=== PATIENT | male | born 1980 | race Caucasian/White ===

== ENCOUNTER 2022-05-24 08:31 | Emergency (ER) | payer OTHER ==
[~2022-05-24] VITALS: Ht 175.3 cm; Wt 110.9 kg
[2022-05-24] MEDS ORDERED: KETOROLAC TROMETHAMINE 30 MG/ML VIAL ONE (09:08)
[2022-05-24] MEDS ORDERED: SODIUM CHLORIDE 0.9% 1000ML 1,000 ML ONE (09:08)
[2022-05-24] MEDS ORDERED: ONDANSETRON HCL INJ 2MG/ML 2ML 2 MG/ML VIAL ONE (09:08)
[2022-05-24] MEDS ORDERED: Morphine 4mg INJECTION 4 MG/ML INJ IV ONE (09:15)
[2022-05-24] MEDS ORDERED: PRILOSEC OTC20 MG (09:39)
[2022-05-24] MEDS ORDERED: ONDANSETRON HCL INJ 2MG/ML 2ML 2 MG/ML VIAL IV STA (09:50)
[2022-05-24] MEDS ORDERED: KETOROLAC TROMETHAMINE 30 MG/ML VIAL IV STA (09:50)
[2022-05-24] MEDS ORDERED: SODIUM CHLORIDE 0.9% 1000ML 1,000 ML IV ONE (10:00)
[2022-05-24] MEDS ORDERED: Morphine 4mg INJECTION 4 MG/ML INJ ONE (10:35)
[2022-05-24] MEDS ORDERED: FLOMAX0.4 MG PO (10:44)
[2022-05-24] MEDS ORDERED: KETOROLAC TROME10 MG PO (10:44)
[2022-05-24] MEDS ORDERED: CIPRO500 MG PO (10:44)
== END 2022-05-24 10:54 | disposition home or self-care (01) ==
LOC: FSED 08:45
DX: Z48.02 Encounter for removal of sutures (principal); R30.0 Dysuria; R10.32 Left lower quadrant pain; R11.2 Nausea with vomiting, unspecified; K21.9 Gastro-esophageal reflux disease without esophagitis; M54.9 Dorsalgia, unspecified; G89.29 Other chronic pain; F17.210 Nicotine dependence, cigarettes, uncomplicated
CPT/HCPCS: 74176; 80053; 81003; 85025; 96374; 96375; 99284; J1885; J2270; J2405; J7030